=== PATIENT | male | born 1945 | race Caucasian/White ===

== ENCOUNTER 2016-07-03 11:44 | Emergency (ER) | payer MEDICARE ==
[~2016-07-03] VITALS: Wt 68.0 kg
--- NOTE | ~2016-07-03 | EKG ---
[place], [place] ELECTROCARDIOGRAM REPORT NAME: LYDIA GALVEZ UNIT #: [id number] ROOM: DOCTOR: SREEKANTH SAMPSON MD BIRTHDATE: [birth year] DOS: 07/03/2016 TIME: 1349 hours. Normal sinus rhythm at 89 beats per minute. Low voltage ECG. Moderate left axis deviation. Poor RV progression is present. Abnormal ECG. No prior tracing is available for comparison. SREEKANTH SAMPSON MD CM:EKGRPT:ELECTROCARDIOGRAM REPORT [id number] SREEKANTH SAMPSON MD
[~2016-07-03 11:44] MED LIST: ACETAMINOPHEN-H1 TA2 PO; ALBUTEROL2.5 MG/0.5 INH; ASPIRIN81 M1 PO; ASPIRIN81 MG PO; ATROVENT I0.5 MG/2.1 NEB; AUGMENTIN 875 M1 TAB PO; CARISOPRODOL350 MG PO; CIPRO250 MG PO; CIPRODEX 0.3%-7.5 ML OT; CIPROFLOXACIN500 M4 PO; CIPROFLOXACIN500 MG PO; CLARITIN10 MG PO; COREG3.125 MG PO; DOXYCYCLINE100 M3 PO; HYDROCODONE BIT1 T11 PO; INDERAL20 MG PO; LISINOPRIL2.5 MG PO; LISINOPRIL5 MG PO; NITROSTAT0.4 MG SL; PHENERGAN25 M3 PO; PLAVIX75 M1 PO; PLAVIX75 MG PO; PREDNISONE10 MG PO; PROVENTIL0.09 MG/A1 INH; PROVENTIL0.09 MG/AC IH; SIMVASTATIN20 MG PO; SIMVASTATIN40 MG PO; SOMA250 MG PO; SOMA350 MG PO; TYLENOL ES500 MG PO; TYLENOL EXTRA500 M1 PO; XANAX0.25 MG PO; XANAX0.5 MG PO; ZOCOR20 MG PO; ZOCOR40 MG PO; ZOFRAN ODT8 MG PO
[2016-07-03 12:43] LABS: BASO % 0.2 % (0.0-1.0); EOS # 0.1 10*3/uL (0.0-0.4); HEMATOCRIT 29.4 % (42.0-52.0); HEMOGLOBIN 9.8 g/dl (14.0-18.0); IG # 0.1 10*3/uL (0.0-0.1); LYMPH # 0.9 10*3/uL (1.3-4.4); LYMPH % 6.9 % (27.0-41.0); MEAN CORPUSCULAR HGB CONC 33.3 g/dl (33.0-37.0); MEAN PLATELET VOLUME 8.6 fl (9.6-12.3); MONO # 0.8 10*3/uL (0.1-1.0); MONO % 6.3 % (3.0-9.0); NEUT # 11.3 10*3/uL (2.3-7.9); NEUT % 85.1 % (47.0-73.0); PLATELET COUNT AUTOMATED 385 10*3/uL (130-400); RED BLOOD COUNT 3.16 10*6/uL (4.50-5.90); RED CELL DISTRI WIDTH 12.3 % (0-14.5); WHITE BLOOD COUNT 13.3 10*3/uL (4.8-10.8)
[2016-07-03 12:59] LABS: ALBUMIN 2.3 gm/dl (3.1-4.5); ALKALINE PHOSPHATASE 113 U/L (45-117); BILIRUBIN, TOTAL 0.4 mg/dl (0.2-1.0); BUN 12 mg/dl (7-24); CARBON DIOXIDE 25 mmol/L (21-32); CHLORIDE 98 mmol/L (98-107); EST GLOM FILT AFRICAN AMERICAN > 60 ml/min; GLUCOSE 111 mg/dL (65-99); POTASSIUM 3.8 mmol/L (3.5-5.1); SGOT/AST 49 IU/L (3-35); SGPT/ALT 36 U/L (12-78); SODIUM 134 mmol/L (136-145)
[2016-07-03 14:32] LABS: BILIRUBIN NEGATIVE (NEGATIVE); BLOOD 3+ (NEGATIVE); CLARITY CLOUDY (CLEAR); COLOR YELLOW (YELLOW); GLUCOSE NEGATIVE (NEGATIVE); KETONE 1+ (NEGATIVE); LEUKO ESTERASE 1+ (NEGATIVE); NITRITE NEGATIVE (NEGATIVE); PROTEIN 2+ (NEGATIVE); SPECIFIC GRAVITY 1.025 (1.005-1.030); UROBILINOGEN 0.2 E.U./dl (0.2-1.0)
[2016-07-03 14:40] LABS: RBC TNTC rbc/hpf (0-2)
[2016-07-03 14:41] LABS: BACTERIA 2+; WBC TNTC wbc/hpf (0-5)
[2016-07-03 14:42] LABS: URINE REFLEX COMMENT YES (NO)
[2016-07-03 19:19] VITALS: BP 130/72
[2016-07-13] MEDS ORDERED: MORPHINE SULFAT30 M1 PO (01:30)
[2016-07-13] MEDS ORDERED: OXYCONTIN10 M1 PO (01:32)
[2016-07-13] MEDS ORDERED: Phenergan25 MG PO (01:32)
== END 2016-07-03 20:47 | disposition short-term general hospital (02) ==
LOC: ED 11:44
PROVIDERS: Registered Nurse
DX: C67.9 Malignant neoplasm of bladder, unspecified (principal); J96.20 Acute and chronic respiratory failure, unspecified whether with hypoxia or hypercapnia; Z88.2 Allergy status to sulfonamides; Z88.6 Allergy status to analgesic agent; Z88.8 Allergy status to other drugs, medicaments and biological substances; Z87.891 Personal history of nicotine dependence; Z95.5 Presence of coronary angioplasty implant and graft

== ENCOUNTER 2016-07-13 15:04 | Inpatient (IN) | payer OTHER, MEDICARE ==
[~2016-07-13] VITALS: Ht 167.6 cm; Wt 69.6 kg
[~2016-07-13 15:04] MED LIST changes: +MORPHINE SULFAT30 M1 PO; +OXYCONTIN10 M1 PO; +Phenergan25 MG PO
[2016-07-13 16:00] VITALS: BP 72/55
[2016-07-14] VITALS: BP 89/59
[2016-07-14 08:00] VITALS: BP 111/58
[2016-07-14 16:00] VITALS: BP 97/52
[2016-07-15] VITALS: BP 107/62
[2016-07-15 08:00] VITALS: BP 113/70
[2016-07-15 16:00] VITALS: BP 127/65
[2016-07-16] VITALS: BP 124/78
[2016-07-16 08:00] VITALS: BP 125/57
[2016-07-16 20:00] VITALS: BP 137/58
[2016-07-17] VITALS: BP 141/70
[2016-07-17 08:00] VITALS: BP 126/93
[2016-07-17 16:00] VITALS: BP 138/62
[2016-07-18] VITALS (11 sets, daily range): BP systolic 81–107; BP diastolic 49–62
[2016-07-19] VITALS: BP 57/34
[2016-07-19 02:00] VITALS: BP 87/49
[2016-07-19 04:00] VITALS: BP 93/63
[2016-07-19 06:00] VITALS: BP 92/53
[2016-07-19 08:00] VITALS: BP 84/48
== END 2016-07-19 10:25 | disposition expired | DRG 871 ==
LOC: 5E 15:04
DX: A41.9 Sepsis, unspecified organism (principal); R65.21 Severe sepsis with septic shock; N17.0 Acute kidney failure with tubular necrosis; G93.40 Encephalopathy, unspecified; C78.00 Secondary malignant neoplasm of unspecified lung; N39.0 Urinary tract infection, site not specified; D53.9 Nutritional anemia, unspecified; C67.9 Malignant neoplasm of bladder, unspecified; J44.9 Chronic obstructive pulmonary disease, unspecified; Z51.5 Encounter for palliative care